=== PATIENT | female | born 1970 | race African-American/Black ===

== ENCOUNTER 2024-06-13 23:44 | Emergency (ER) | payer OTHER ==
[~2024-06-13] VITALS: Ht 167.6 cm; Wt 124.0 kg
[~2024-06-13 23:44] MED LIST: ERYT1OIN6 RIGHTEYE; IBUP-2029 MT; SULF1TAB48 MT
[2024-06-14 00:14] VITALS: O2SAT 100
[2024-06-14] MEDS: KETOROLAC 15MG/ML VIAL IM ONE (01:28)
[2024-06-14] MEDS: DEXAMETHASONE 10 MG/ML VIAL IM ONE (01:28)
[2024-06-14 02:00] VITALS: BP 133/74; PULSE 78; RESP 16; TEMP 99.1
[2024-06-14] MEDS ORDERED: CLIN-194 MT (12:43)
== END 2024-06-14 02:00 | disposition home or self-care (01) ==
LOC: ER 23:44
DX: J02.0 Streptococcal pharyngitis (principal); I10 Essential (primary) hypertension; Z88.0 Allergy status to penicillin; Z88.6 Allergy status to analgesic agent; Z98.890 Other specified postprocedural states
CPT/HCPCS: 99284; 87430; 96372; J1100; J1885